=== PATIENT | male | born 1985 | race African-American/Black ===

== ENCOUNTER 2021-04-05 02:26 | Emergency (ER) | payer SELFPAY | END 2021-04-05 02:56 | disposition home or self-care (01) | LOC: CSHERS 02:26 | DX: K02.9 Dental caries, unspecified (principal); F17.210 Nicotine dependence, cigarettes, uncomplicated | CPT/HCPCS: 99282 ==

== ENCOUNTER 2022-12-23 13:55 | Emergency (ER) | payer SELFPAY ==
[2022-12-23] MEDS ORDERED: Lidocaine Viscous Sol 2% 15 ml UD Cup FS SCH (16:00)
[2022-12-23] MEDS ORDERED: HYDROcodone/Acetaminophen 5/325 mg Tablet ONE (18:55)
== END 2022-12-23 18:50 | disposition home or self-care (01) ==
LOC: CSHERS 13:55
DX: K02.9 Dental caries, unspecified (principal); F17.210 Nicotine dependence, cigarettes, uncomplicated
CPT/HCPCS: 99282

== ENCOUNTER 2023-03-01 02:21 | Emergency (ER) | payer SELFPAY | END 2023-03-01 03:05 | disposition home or self-care (01) | LOC: CSHERS 02:21 | DX: K08.89 Other specified disorders of teeth and supporting structures (principal); F17.210 Nicotine dependence, cigarettes, uncomplicated | CPT/HCPCS: 99282 ==

== ENCOUNTER 2024-03-07 16:01 | Emergency (ER) | payer OTHER, SELFPAY ==
[2024-03-07 16:59] LABS: #Basophils 0.04 10x3/uL (0.0-0.2); #Monocytes 0.49 10x3/uL (0.0-1.1); #Neutrophils 3.68 10x3/uL (1.5-8.4); %Basophils 0.5 % (0.0-2.0); %Eosinophils 1.4 % (0.0-6.0); %Lymphocytes 41.5 % (18.0-47.0); %Monocytes 6.6 % (0.0-10.0); %Neutrophils 49.9 % (40.0-75.0); Hematocrit 44.3 % (38.8-50.0); Hemoglobin 15.5 g/dL (13.5-17.5); Mean Corpuscular Volume 91.3 fL (81.2-95.1); Mean Platelet Volume 9.8 fL (7.4-10.4); Platelet Count 290 10x3/uL (150-450); RBC Distribution Width 13.8 % (11.5-14.5); Red Blood Cell (RBC) Count 4.85 10x6/uL (4.32-5.72); White Blood Cell (WBC) Count 7.38 10x3/uL (3.5-10.5)
[2024-03-07 17:17] LABS: ALT (SGPT) 11 U/L (Less than 45); AST (SGOT) 22 U/L (11-34); Albumin 4.4 g/dL (3.1-4.5); Alkaline Phosphatase 95 U/L (40-110); Anion Gap 15 mmol/L (10-20); BUN (Urea Nitrogen) 6 mg/dL (8.9-20.6); Bilirubin, Total 0.7 mg/dL (0.3-1.2); Calc. Creatinine Clearance 0 mL/min (70-130); Carbon Dioxide 24 mmol/L (22-29); Chloride 105 mmol/L (98-107); Estimated GFR 114; Globulin 3.6 g/dL (2.4-3.5); Glucose 106 mg/dL (70-105); Potassium 3.5 mmol/L (3.5-5.1); Sodium 140 mmol/L (136-145)
[2024-03-07 17:23] LABS: Troponin I Less than 0.010 ng/mL (< 0.028)
== END 2024-03-07 17:49 | disposition home or self-care (01) ==
LOC: CSHERS 16:01
DX: R00.2 Palpitations (principal); F17.210 Nicotine dependence, cigarettes, uncomplicated
CPT/HCPCS: 36415; 71045; 80053; 84443; 84484; 85025; 85379; 93005